=== PATIENT | male | born 1995 | race Caucasian/White ===

== ENCOUNTER 2016-09-07 21:09 | Emergency (ER) | payer SELFPAY ==
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
--- NOTE | 2016-09-07 23:07 | ED ORDER SUMMARY ---
..... Patient: JOAQUINA MALDONADO OrderSheet [facility] VisitID: [id number] [address] [place] [address] 21y, M Registration Date/Time: 09/07/2016 ORDER SHEET Weight: 90.7 kg Allergies: No Known Drug Allergy GENERAL ORDERS: Chest 2V Urgent (21:37 09/07/2016 EKoroleva P.A.-C) (Ack 21:39 CHagerty ER Rig Site Engineer) (22:02 RFay) CT Head wo Cont Urgent (21:37 09/07/2016 EKoroleva P.A.-C) (Ack 21:39 CHagerty [employer] Rig Site Engineer) (22:02 RFay) Cervical Spine 2 or 3V Urgent (21:37 09/07/2016 EKoroleva P.A.-C) (Ack 21:39 CHagerty [employer] Rig Site Engineer) (22:02 RFay) Wrist 3 or 4V Right Urgent (21:37 09/07/2016 EKoroleva P.A.-C) (Ack 21:39 [facility]agerty [employer] Rig Site Engineer) (22:02 RFay) Cardiac Panel Stat (21:37 09/07/2016 EKoroleva P.A.-C) (Ack 21:39 CHagerty [employer] Rig Site Engineer) (21:52 EBonham) PT with INR Urgent (21:37 09/07/2016 EKoroleva P.A.-C) (Ack 21:39 CHagerty [employer] Rig Site Engineer) (21:52 EBonham) PTT Urgent (21:37 09/07/2016 EKoroleva P.A.-C) (Ack 21:39 CHagerty [employer] Rig Site Engineer) (21:52 EBonham) Urine Drug Screen Urgent (21:37 09/07/2016 EKoroleva P.A.-C) (Ack 21:39 CHagerty [employer] Rig Site Engineer) (22:30 EBonham) EKG - ER Stat (21:37 09/07/2016 EKoroleva P.A.-C) (Ack 21:39 CHagerty ER Rig Site Engineer) (21:52 CHategekimana) Splint (UE) (Right) (wrist velcro) (22:41 09/07/2016 Eladio Hoffman.A.-C) Vitals (22:47 09/07/2016 Eladio ReyesAJabier-C) (22:57 [facility]) MEDICATION ORDERS: IV FLUIDS: IV Saline Lock (21:37 09/07/2016 Eladio ReyesAJabier-C) (21:52 [facility]) ORDER SHEET NOTES: [Electronically signed by Carla Sofia (23:22 09/07/2016)] [Electronically signed by Lora Harrington P.A.-C (23:36 09/07/2016)] [Electronically locked/signed by Carla Sofia (23:22 09/07/2016)]
--- NOTE | 2016-09-07 23:07 | ED ORDER SUMMARY ---
..... Patient: JOAQUINA MALDONADO OrderSheet [facility] VisitID: [id number] [address] [place] [address] 21y, M Registration Date/Time: 09/07/2016 ORDER SHEET Weight: 90.7 kg Allergies: No Known Drug Allergy GENERAL ORDERS: Chest 2V Urgent (21:37 09/07/2016 EKoroleva P.A.-C) (Ack 21:39 CHagerty [facility] Regional Facilities Manager) (22:02 RFay) CT Head wo Cont Urgent (21:37 09/07/2016 EKoroleva P.A.-C) (Ack 21:39 [facility] [employer] Facilities Manager) (22:02 RFay) Cervical Spine 2 or 3V Urgent (21:37 09/07/2016 EKoroleva P.A.-C) (Ack 21:39 [facility] [employer] Facilities Manager) (22:02 RFay) Wrist 3 or 4V Right Urgent (21:37 09/07/2016 EKoroleva P.A.-C) (Ack 21:39 [facility] [employer] Facilities Manager) (22:02 RFay) Cardiac Panel Stat (21:37 09/07/2016 EKoroleva P.A.-C) (Ack 21:39 [facility] [employer] Facilities Manager) (21:52 EBonham) PT with INR Urgent (21:37 09/07/2016 EKoroleva P.A.-C) (Ack 21:39 [facility] [employer] Facilities Manager) (21:52 EBonham) PTT Urgent (21:37 09/07/2016 EKoroleva P.A.-C) (Ack 21:39 [facility] [employer] Facilities Manager) (21:52 EBonham) Urine Drug Screen Urgent (21:37 09/07/2016 EKoroleva P.A.-C) (Ack 21:39 [facility] [employer] Facilities Manager) (22:30 EBonham) EKG - ER Stat (21:37 09/07/2016 EKoroleva P.A.-C) (Ack 21:39 [facility]agerty [facility] Regional Facilities Manager) (21:52 CHategekimana) Splint (UE) (Right) (wrist velcro) (22:41 09/07/2016 Eladio Hoffman.A.-C) Vitals (22:47 09/07/2016 Eladio ReyesAJabier-C) (22:57 [facility]) MEDICATION ORDERS: IV FLUIDS: IV Saline Lock (21:37 09/07/2016 Eladio ReyesAJabier-C) (21:52 [facility]) ORDER SHEET NOTES: [Electronically signed by Carla Sofia (23:22 09/07/2016)] [Electronically signed by Lora Harrington P.A.-C (23:36 09/07/2016)] [Electronically locked/signed by Carla Sofia (23:22 09/07/2016)]
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
--- NOTE | 2016-09-07 23:37 | ED MAR SUMMARY ---
..... Medication Administration Record [facility] [address] [place] [place] [address] Patient: JOAQUINA MALDONADO Visit ID: [id number] 21y, M Weight: 90.7 kg Height/Length: 71 in BMI: 27.9 ALLERGIES: No Known Drug Allergy
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
--- NOTE | 2016-09-07 23:37 | ED MED RECONCILIATION SUMMARY ---
Patient: JOAQUINA MALDONADO Medication Reconciliation Report [facility] VisitID: [id number] [address] [place] [address] 21y, M Registration Date/Time: 09/07/2016 Weight: 90.7 kg Height/Length: 71 in. BMI: 27.9 ALLERGIES: No Known Drug Allergy The patient's Home Medications are listed below: NONE. The source(s) of the original Home Medication information: Not obtained. The following Medications were given to the patient in the Emergency Department: None. The following Medications were prescribed to the patient: Motrin 800 mg tablets: take 1 tablet orally every 8 hours for 5 days, as needed for pain. Dispense fifteen (15). No refill. Substitution is permissible. -- Lora Harrington P.A.-C
--- NOTE | 2016-09-07 23:37 | ED MAR SUMMARY ---
..... Medication Administration Record [facility] [address] [address] Patient: JOAQUINA MALDONADO Visit ID: [id number] 21y, M Weight: 90.7 kg Height/Length: 71 in BMI: 27.9 ALLERGIES: No Known Drug Allergy
--- NOTE | 2016-09-07 23:37 | ED MED RECONCILIATION SUMMARY ---
Patient: JOAQUINA MALDONADO Medication Reconciliation Report [facility] VisitID: [id number] [address] [place] [address] 21y, M Registration Date/Time: 09/07/2016 Weight: 90.7 kg Height/Length: 71 in. BMI: 27.9 ALLERGIES: No Known Drug Allergy The patient's Home Medications are listed below: NONE. The source(s) of the original Home Medication information: Not obtained. The following Medications were given to the patient in the Emergency Department: None. The following Medications were prescribed to the patient: Motrin 800 mg tablets: take 1 tablet orally every 8 hours for 5 days, as needed for pain. Dispense fifteen (15). No refill. Substitution is permissible. -- Lora Harrington P.A.-C
== END 2016-09-07 23:20 | disposition home or self-care (01) ==
LOC: ED SRH 21:09
DX: S52.501A Unspecified fracture of the lower end of right radius, initial encounter for closed fracture (principal); R55 Syncope and collapse; V47.0XXA Car driver injured in collision with fixed or stationary object in nontraffic accident, initial encounter; Y93.9 Activity, unspecified; Y92.410 Unspecified street and highway as the place of occurrence of the external cause; Y99.9 Unspecified external cause status